=== PATIENT | female | born 1990 | race Caucasian/White ===

== ENCOUNTER 2018-07-24 17:48 | Inpatient (IN) | payer MEDICAID ==
[~2018-07-24] VITALS: Ht 154.9 cm; Wt 92.7 kg
[2018-07-24] MEDS ORDERED: LACTATED RINGER'S 1,000 ML IV SCH (17:49)
[2018-07-24] MEDS ORDERED: METHYLERGONOVINE 0.2 MG INJ IM PRN (18:00)
[2018-07-24] MEDS ORDERED: OXYTOCIN 30 UNITS/LR 500 ML IV PRN (18:00)
[2018-07-24] MEDS ORDERED: OXYTOCIN 30 UNITS/LR 500 ML IV SCH (18:00)
[2018-07-24] MEDS ORDERED: CEFAZOLIN 2 GM/50 ML (PMX) 50 ML IVPB SCH (18:00)
[2018-07-24] MEDS ORDERED: CARBOPROST 250 MCG INJ IM PRN (18:00)
[2018-07-24] MEDS ORDERED: MISOPROSTOL 200 MCG TAB PR PRN (18:00)
[2018-07-24] MEDS ORDERED: ONDANSETRON 4 MG INJ IV STA ×2 (18:02→18:07)
[2018-07-24 18:05] VITALS: Ht 154.9 cm; Wt 92.7 kg
[2018-07-24] MEDS ORDERED: PNV11TAB PO (18:07)
[2018-07-24] MEDS ORDERED: FAMOTIDINE 20 MG INJ IV ONE ×2 (18:30)
[2018-07-24] MEDS ORDERED: METOCLOPRAMIDE 10 MG INJ IV ONE ×2 (18:30)
[2018-07-24] MEDS ORDERED: CEFAZOLIN 2 GM/50 ML (PMX) 50 ML IVPB ONE (18:34)
--- NOTE | 2018-07-24 19:23 | HP ---
Date/Time of Note Date/Time of Note DATE: 07/24/18 TIME: 19:20 OB - History Hx of Present Free Text/Dictation 37 years old 1 with breech presentation at 39 weeks and 3 days admitted for primary delivery. She states good movement. She denies nausea, vomiting, shortness of breath, chest pain, headache, visual changes, vaginal bleeding or LOF. Chief Complaint: Scheduled for primary delivery for breech presentation Estimated Due Date: July 28, 2018 : 1 Care: Good Care Ultrasounds: Normal mid trimester US Obstetrical Complications: None Medical Complications: None Past Family/Social History * Past Medical, Surgical, Family and Obstetric Histories reviewed from chart. Blood Type: O+ Rubella: immune RPR/VDRL: Negative GBS Status: Negative HBsAG: Negative OB Admission Exam Vital Signs Vital Signs Blood pressure 126/71, pulse rate 79/minutes, respiratory rate 16/minutes, temperature 98.6 Physical Exam HEENT: WNL Heart: Rhythm Normal Lungs: Clear Abdomen: WNL Extremities: Normal Membranes: Intact Heart Rate: 130's Accelerations: Accelerations Present Decelerations: No Decelerations Varibility: Moderate Contractions on Admission: None Last 72 hours Lab Results CBC & BMP 07/24/18 18:00 OB Assessment/Plan Other plan: 27 years old 1 with single intrauterine at 39 weeks and 3 days with breech presentation -FHR: No sign of metabolic acidosis- Category I -Continuous EFM, toco -CBC, blood type and screen -O+/Rubella: Immune -GBS: Negative The risk of delivery including but not limited to bleeding, infection, injury to other organs (bowel, bladder, ureter, vessels, nerves), injury to fetus, blood transfusion, blood transfusion related infection, risk of anesthesia, adhesion, needs for future , removal of uterus or any other indicated surgery was discussed with the patient and her family. She expressed understanding. All of her questions were answered. She signed the informed consent. PHYSICIAN'S VERIFICATION OF INFORMED CONSENT The patient was counseled regarding the procedure, its indications, risks, potential complications and alternatives and any questions were answered. Consent was obtained. PLANNED PROCEDURE/TREATMENT: delivery with possible using vacuum/forceps and any other indicated surgery PHYSICIAN'S VERIFICATION OF INFORMED CONSENT FOR BLOOD TRANSFUSION: There is a reasonable possibility that blood transfusion will be necessary as a result of the patient's procedure. I have discussed the following with the patient/patient's legal retail account representative: An explanation of the benefits and risks of the transfusion of blood or blood products and the possible alternatives. All questions have been answered to the patient's satisfaction. INFORMED CONSENT:The patient has been informed of: The nature of the proposed care, treatment, services, medications, interventions or procedures. Potential benefits, risks or side effects, including potential problems related to recuperation. The likelihood of achieving care treatment and service goals. Reasonable alternatives to the proposed care, treatment and service. The relevant risks, benefits and side effects related to alternatives, including the possible results of not receiving care, treatment and services. When indicated, any limitations on the confidentiality of information learned from or about the patient. If appropriate, the risks, benefits and alternatives of the drugs to be used for sedation/analgesia including moderate sedation. If appropriate, patient has been provided information on the risks, benefits and alternatives to the transfusion of blood and/or blood products. If appropriate, patient has been provided information regarding the [place] Blood Act. JUAN CASTANEDA July 24, 2018 19:23
--- NOTE | 2018-07-24 20:54 | PREAC ---
Date/Time of Note Date/Time of Note DATE: 07/24/18 TIME: 20:52 Anesthesia Eval and Record Evaluation Time Pre-Procedure Interview DATE: 07/24/18 TIME: 20:52 Age 27 Sex female NPO: 8 hrs Preoperative diagnosis term labor , breech presentation Planned procedure primary Csection Past Medical History Past Medical History: None : Other (breech) Surgery & Anesthesia Issues No known issue Meds Anticoagulation: No Beta Alysha within 24 hr: No Reason Beta Alysha not given: Pt. not on B-Alysha Reported Medications [id number] ( 19) 1 Each Tablet, 1 TAB PO DAILY, TAB 07/24/18 Current Medications Lactated Ringer's 1,000 ml @ 125 mls/hr Q8H IV Last administered on 07/24/18at 18:41; Admin Dose 125 MLS/HR; Start 07/24/18 at 17:49 Cefazolin Sodium/ Dextrose 50 ml @ 100 mls/hr ONCE IVPB ; Start 07/24/18 at 18:00 Oxytocin/Lactated Ringer's 500 ml @ 125 mls/hr POST IV ; Start 07/24/18 at 18:00 Oxytocin/Lactated Ringer's 500 ml @ 0 mls/hr ONCE PRN IV .VAGINAL BLEEDING; St art 07/24/18 at 18:00 Methylergonovine Maleate (Methergine) 0.2 mg ONCE PRN IM .VAGINAL BLEEDING; St art 07/24/18 at 18:00 Carboprost Tromethamine (Hemabate) 250 mcg ONCE PRN IM .VAGINAL BLEEDING; Start 07/24/18 at 18:00 Misoprostol (Cytotec) 1,000 mcg ONCE PRN VT .VAGINAL BLEEDING; Start 07/24/18 at 18:00 Meds reviewed: Yes Allergies Coded Allergies: No Known Allergy (Unverified , 07/24/18) Allergies Reviewed: Yes Labs/Studies Labs Reviewed: Reviewed by anesthesiologist Result Diagram: 07/24/18 1800 Laboratory Tests 07/24/18 18:00 Blood Bank Test 07/24/18 18:00 Antibody Screen NEGATIVE Blood Type O POSITIVE Rh Immune Globulin Candidate NO test: Positive Pre-procedure Exam Airway: Adequate mouth opening, Adequate thyromental dist Mallampati: Mallampati III Teeth: Normal Lung: Normal Heart: Normal ASA Physical Status ASA physical status: 2 Emergency: None Planned Anesthetic Neuraxial: Spinal Planned Pain Management Sub-arachniod narcotics, Parenteral pain med, Other neuraxial med Pre-operative Attestations Prior to commencing anesthesia and surgery, the patient was re-evaluated, there was verification of: *The patient's identity *The results of appropriate recent lab work and preoperative vital signs *The above evaluation not changing prior to induction *Anesthetic plan, risk benefits, alternative and complications discussed with patient/family; questions answered; patient/family understands, accepts and wishes to proceed. RAFA ADLER MD July 24, 2018 20:53
[2018-07-24] MEDS ORDERED: morphine SULFATE/PF (10 MG/10 ML) INJ ONE (20:57)
[2018-07-24] MEDS ORDERED: OXYTOCIN 10 UNIT INJ ONE ×3 (20:57→22:40)
[2018-07-24] MEDS ORDERED: OXYTOCIN 30 UNITS/LR 500 ML IV ONE (20:57)
[2018-07-24] MEDS ORDERED: MIDAZOLAM 1 MG/ML 2 ML INJ IV PRN (21:00)
[2018-07-24] MEDS ORDERED: HYDROmorphONE 1 MG/5 ML IV SYRINGE IV PRN ×3 (21:00)
[2018-07-24] MEDS ORDERED: ONDANSETRON 4 MG INJ IV PRN ×2 (21:00)
[2018-07-24] MEDS ORDERED: HYDROmorphONE 0.5 MG/0.5 ML SYG IV PRN ×2 (21:00)
[2018-07-24] MEDS ORDERED: LORAZEPAM 2 MG INJ IV PRN (21:00)
[2018-07-24] MEDS ORDERED: KETOROLAC 30 MG INJ IV PRN ×2 (21:00)
[2018-07-24] MEDS ORDERED: FENTAnyl 50 MCG/ML VIAL IV PRN ×2 (21:00)
[2018-07-24] MEDS ORDERED: NALOXONE (0.4 MG/ML) INJ IV PRN ×2 (21:00)
[2018-07-24] MEDS ORDERED: DIPHENHYDRAMINE 50 MG INJ IV PRN ×2 (21:00)
[2018-07-24] MEDS ORDERED: ZOLPIDEM 5 MG TAB PO PRN (21:00)
--- NOTE | 2018-07-25 00:11 | OPR ---
Operative Report Planned Procedure Procedure date July 25, 2018 Procedure(s) Primary low transverse delivery Performed by see signature line Flitch Hanger: BRIAN SAHNI MD Anesthesiologist: RAFA ADLER MD Pre-procedure diagnosis 37 years old 1 with breech presentation at 39 weeks and 3 days [id number] Anesthesia Type: Rtdel3h spinal Post-Procedure Post-procedure diagnosis 37 years old 1 with lindsay breech presentation at 39 weeks and 3 days Findings 1. Normal uterus, fallopian tubes and ovaries 2. Viable male in lindsay breech presentation. 9 at one minute and 9 in 5 minutes. Weight: 4460 gram. Time of delivery: 22:31 3. Placenta with three vessel cord 4. Amniotic fluid -thin meconium Estimated Blood Loss: 500 - 600 mls Specimen(s) none Grafts/Implant(s) none Complication(s) none Pt Condition post procedure: stable Disposition: PACU Procedure Description INDICATION AND HISTORY: A 37-year-old 1 with lindsay breech presentation at 39 weeks and 3 days. The risk of delivery including but not limited to bleeding, infection, injury to other organs (bowel, bladder, ureter, vessels, nerves), injury to fetus, blood transfusion, blood transfusion related infection, risk of anesthesia, adhesion, needs for future , removal of uterus or any other indicated surgery was discussed with the patient and her family. She expressed understanding. All of her questions were answered. She signed the informed consent. DESCRIPTION OF OPERATION: The patient was taken to the operating room, where she was identified and the procedure was verified. The patient received two gram of Ancef 30 minutes prior to surgery. Spinal anesthesia was placed by anesthesiologist. The patient placed in the dorsal supine position with a left tilt. The heart rate was 128 bpm. The patient was then prepped and draped in the normal sterile [facility] ion. A Pfannenstiel skin incision was made and carried down to the fascia with knife. The fascia was incised in the midline and the fascial incision was carried laterally with knife. The superior portion of the fascial incision was then grasped with Zaki clamps and tented up and dissected off the underlying rectus muscle with sharp dissection. The lower portion of the fascial incision was then made in a similar fashion. The rectus muscle was and the peritoneum was entered. The peritoneal incision was then stretched and a bladder blade was inserted. Then, an incision was made in the lower uterine segment in a transverse fashion with a knife and extended bluntly. The was in lindsay breech presentation,delivered in double footling breech atraumatically with the above findings. The umbilical cord was clamped and cut. The neonatology resuscitation team was present and the baby was handed to them. A cord blood sample was obtained for further evaluation. The placenta and membrane, which appeared normal were Removed. The uterus was exteriorized and cleared of all clot and debris. The uterus was then closed in a two layer fashion with 0-Monocryl. At the time of closure, hemostasis was noted. The gutters were irrigated. The peritoneum was reapproximated with 3-0 Vicryl. The muscle was reapproximated with 3-0 Vicryl. The fascia was approximated with 0-Vicryl in a running fashion. The subcutaneous tissue was re approximated with 3-0 vicryl. The skin was closed with 4-0 Monocryl. All instruments, sponges and needle counts were correct x3. The patient tolerated the procedure well. She transferred to the recovery room in stable condition. JUAN CASTANEDA July 25, 2018 00:11
[2018-07-25] MEDS ORDERED: MAGNESIUM HYDROXIDE 30ML CUP PO PRN (00:30)
[2018-07-25 01:30] VITALS: BP 132/73; PULSE 100; RESP 18
[2018-07-25] MEDS ORDERED: OXYTOCIN 30 UNITS/LR 500 ML IV SCH (02:03)
[2018-07-25 02:30] VITALS: BP 130/76; PULSE 117; PULSE 127; RESP 18
[2018-07-25] MEDS ORDERED: METHYLERGONOVINE 0.2 MG INJ IM PRN (02:30)
[2018-07-25] MEDS ORDERED: LANOLIN HPA 1 PKT TOP PRN (02:30)
[2018-07-25] MEDS ORDERED: CARBOPROST 250 MCG INJ IM PRN (02:30)
[2018-07-25] MEDS ORDERED: MISOPROSTOL 200 MCG TAB PR PRN (02:30)
[2018-07-25] MEDS ORDERED: METHYLERGONOVINE 0.2 MG TAB PO PRN (02:30)
[2018-07-25] MEDS ORDERED: OXYTOCIN 30 UNITS/LR 500 ML IV PRN (02:30)
[2018-07-25 04:15] VITALS: BP 126/64; PULSE 133; RESP 18
[2018-07-25 08:30] VITALS: BP 139/68; PULSE 108; RESP 20
[2018-07-25] MEDS: SENNA/DOCUSATE NA (8.6MG/50MG) TAB PO SCH ×2 (08:37→22:13)
[2018-07-25] MEDS: DEXTROSE 5%-LR 1,000 ML IV SCH ×2 (10:43→15:43)
[2018-07-25 12:25] VITALS: BP 121/71; PULSE 101; RESP 20
[2018-07-25 16:53] VITALS: BP 122/70; PULSE 98; RESP 18
[2018-07-25] MEDS: IBUPROFEN 800 MG TAB PO SCH (22:13)
--- NOTE | 2018-07-26 02:44 | PN ---
Date/Time of Note Date/Time of Note DATE: 07/26/18 TIME: 02:39 OB Subjective Subjective Subjective POD#1 Patient is doing well. She denies nausea, vomiting, shortness of breath, chest pain, headache. She has been ambulating without difficulty, tolerating regular diet. Pain is well controlled on current medications OB Objective Objective Objective VS - Last 72 Hours, by Label Date Temp Pulse Resp B/P (MAP) Pulse Ox O2 O2 Flow FiO2 Time Delivery Rate 07/25/18 Room Air 16:57 07/25/18 98.2 98 18 122/70 Room Air 16:53 (87) 07/25/18 Room Air 16:26 07/25/18 98.8 101 20 121/71 97 Room Air 12:25 (88) 07/25/18 99.2 108 20 139/68 98 08:30 (91) 07/25/18 98.0 133 18 126/64 95 Room Air 04:15 (84) 07/25/18 98.8 127 18 130/76 95 Room Air 02:30 (94) 07/25/18 98.6 100 18 132/73 95 Room Air 01:30 (92) General: AAO X 3, comfortable, NAD, appropriate mood and affect. Heart: RRR +S1, +S2, no murmurs. Lungs: Clear to auscultation (B/L), no rales, rhonchi or wheezing. ABD: +BS. Soft, non-tender. Uterus 2 cm below umbilicus Incision: Clear, dry, intact. No erythema, drainage or induration. Flank: No CVA tenderness (B/L) LE: Mild edema. No clubbing, cyanosis, thigh or calf tenderness (B/L). Homans 'sign is negative OB Assessment/Plan Other plan: 37 years old 1 para 1-0-0-1 s/p primary delivery at 39 weeks and 3 days for breech presentation. POD#1 - AF, VSS - Baby is doing well, at bed side. She is bonding well - Contraception methods with R/B/A/FR discussed - Continue care Late entry note. Patient seen on 07/25/2018 JUAN CASTANEDA July 26, 2018 02:44
--- NOTE | 2018-07-26 02:46 | PN ---
Date/Time of Note Date/Time of Note DATE: 07/26/18 TIME: 02:44 OB Subjective Subjective Subjective POD#2 Patient is doing well. She denies nausea, vomiting, shortness of breath, chest pain, headache. She has been ambulating without difficulty, tolerating regular diet. Pain is well controlled on current medications OB Objective Objective Objective Vital Signs Date Temp Pulse Resp B/P (MAP) Pulse Ox O2 O2 Flow FiO2 Time Delivery Rate 07/25/18 Room Air 16:57 07/25/18 98.2 98 18 122/70 16:53 (87) 07/25/18 97 12:25 General: AAO X 3, comfortable, NAD, appropriate mood and affect. ABD: +BS. Soft, non-tender. Uterus 2 cm below umbilicus Incision: Clear, dry, intact. No erythema, drainage or induration. Flank: No CVA tenderness (B/L) LE: Mild edema. No clubbing, cyanosis, thigh or calf tenderness (B/L). Homans 'sign is negative OB Assessment/Plan Other plan: 37 years old 1 para 1-0-0-1 s/p primary delivery at 39 weeks and 3 days for breech presentation. POD#2 - AF, VSS - Baby is doing well, at bed side. She is bonding well - Contraception methods with R/B/A/FR discussed - Discharge home tomorrow - Rx and instruction given - Follow up in one and 6 weeks JUAN CASTANEDA July 26, 2018 02:46
[2018-07-26 03:44] VITALS: BP 116/77; PULSE 89; RESP 17
[2018-07-26] MEDS: IBUPROFEN 800 MG TAB PO SCH ×3 (06:02→21:19)
[2018-07-26 08:30] VITALS: BP 118/63; PULSE 91; RESP 18
[2018-07-26] MEDS: SENNA/DOCUSATE NA (8.6MG/50MG) TAB PO SCH ×2 (10:03→21:19)
[2018-07-26] MEDS ORDERED: HYDROCODONE/APAP (5/325) TAB PO PRN (11:00)
[2018-07-26] MEDS ORDERED: DIPHTH/TET/ACEL PERTUSS (ADULT) 0.5 ML VIAL IM* ONE (11:00)
[2018-07-26] MEDS: HYDROCODONE/APAP (5/325) TAB PO SCH ×2 (13:26→21:19)
[2018-07-26 17:18] VITALS: BP 130/87; PULSE 91; RESP 18
[2018-07-26 19:45] VITALS: BP 120/78; PULSE 90; RESP 18
[2018-07-26] MEDS ORDERED: DIPHENHYDRAMINE 50 MG CAP PO ONE (23:30)
[2018-07-26] MEDS ORDERED: DIPHENHYDRAMINE 25 MG CAP PO PRN (23:30)
[2018-07-27 03:38] VITALS: BP 126/72; PULSE 78; RESP 17
[2018-07-27] MEDS: HYDROCODONE/APAP (5/325) TAB PO SCH ×2 (05:44→13:39)
[2018-07-27] MEDS: IBUPROFEN 800 MG TAB PO SCH ×2 (05:44→13:39)
[2018-07-27 08:30] VITALS: BP 136/71; PULSE 81; RESP 18
[2018-07-27] MEDS: SENNA/DOCUSATE NA (8.6MG/50MG) TAB PO SCH (10:10)
--- NOTE | 2018-07-27 11:15 | PD.PPDC ---
ROTARY ADJUSTER Discharge Instruction Diagnosis [id number] Final Diagnosis: Aybzz3m s/p primary C/S for breech presentation Condition [id number] Patient Condition: Ylbwl1h Stable Diet Emuvx1Nv Diet: Yctcf4l Resume Regular Diet Activity/Restrictions Gotwj1Gp Restrictions: Sujmf0x No Exercising No Lifting Minimize Stair-climbing No Sexual Activity Nothing in the Vagina No [place] No Tampons, douche Wound/Drain Care Instructions [id number] Wound/Drain Care Instructions: Lbssi1a Wash with soap and water Keep clean and dry Follow-up Follow-up with Physician: 2 Return to clinic for Fpffq7Yj SIGNAL CONSTRUCTOR Instructions: Lufmo8r Fever greater than 101 Chills Worsening abdominal pain Excessive Vaginal Bleeding More than 2 pads per hour Unable to tolerate diet [id number] OB Instructions: Caysc7n Breast Tenderness Depression Blurried Vision Headache Uggim1Pw Surgical Instructions: Nqntm0t Incisional Drainage Incisional Redness JAMES SHEN MD July 27, 2018 11:15
--- NOTE | 2018-07-27 11:17 | DS ---
Date/Time of Note Date/Time of Note DATE: 07/27/18 TIME: 11:16 Obstetrical Discharge Record Final Diagnosis Final Diagnosis: Term delivered Section Section: Primary Complications Augmentation: No Induction: No Rupture of Membranes: No Condition on Discharge Physical Assessment Last Vitals: VSS afebrile Voiding: Yes Bowel Movement: No Breast: Soft, non-tender Fundus: Firm Abdomen and Incision: soft wound dry Calf Tenderness: No Patient Condition: Stable JAMES SHEN MD July 27, 2018 11:17
[2018-07-27 15:55] VITALS: BP 127/94; PULSE 86; RESP 18
[2018-07-28] MEDS ORDERED: MEASLES,MUMPS,RUBELLA VACCINE INJ SC* ONE (09:00)
[2018-07-28] MEDS ORDERED: DIPHTH/TET/ACEL PERTUSS (ADULT) 0.5 ML VIAL IM* ONE (09:00)
--- NOTE | 2018-07-28 19:05 | DELSUM ---
Delivery Summary A-C Datetime Report Generated by CPN: 07/28/2018 19:04 DELIVERY PERSONNEL Turkish Line Attendant: Morgan, Cara MATERNAL INFORMATION Delivery Anesthesia: Spinal Medications in Delivery: see anesthesia records Delivery QBL (ml): 600 Placenta Cultured: No Maternal Complications: None Other Maternal Complications: BREECH LABOR SUMMARY EDC: 07/28/2018 00:00 No. Babies in Womb: 1 Attempted: No Labor Anesthesia: None LABOR INFORMATION Reason for Induction: Not Applicable Oxytocin: N/A Group B Beta Strep: Negative Antibiotics # of Doses: X1 2G ANCEF Antibiotics Time of Last Dose: 07/24/2018 22:10 Steroids Given: None Reason Steroids Not Administered: Not Applicable MEMBRANES Membranes Rupture Method: Artificial Rupture of Membranes: 07/24/2018 22:28 Length of Rupture (hr): 0.05 Amniotic Fluid Color: Light Meconium Amniotic Fluid Amount: Moderate Amniotic Fluid Odor: None STAGES OF LABOR Stage 3 hr: 0 Stage 3 min: 2 CSECTION DELIVERY Primary Indication: Breech Presentation Secondary Indication: N/A CSection Urgency: Non Elective CSection Incidence: Primary Labor: No Labor Elective: Nonelective CSection Incision: Lower Uterine Transverse BABY A INFORMATION Infant Delivery Date/Time: 07/24/2018 22:31 Method of Delivery: Born in Route : No : N/A Forceps: N/A Vacuum Extraction: N/A Shoulder Dystocia : N/A SHOULDER DYSTOCIA BABY A Infant Delivery Date/Time: 07/24/2018 22:31 PRESENTATION/POSITION BABY A Presentation: Breech Cephalic Presentation: N/A Breech Presentation: Abdullahi PLACENTA INFORMATION BABY A Placenta Delivery Time : 07/24/2018 22:33 Placenta Method of Delivery: Expressed Placenta Status: Delivered SCORES BABY A Heart Rate 1 min: >100 bpm Resp Effort 1 min: Good Cry Reflex Irritability 1 min: Cough/Sneeze/Pulls Away Muscle Tone 1 min: Active Motion Color 1 min: Body [place], Extremit Blue Resuscitation Effort 1 min: Tactile Stimulation SCORE 1 MIN: 9 Heart Rate 5 min: >100 bpm Resp Effort 5 min: Good Cry Reflex Irritability 5 min: Cough/Sneeze/Pulls Away Muscle Tone 5 min: Active Motion Color 5 min: Body [place], Extremit Blue Resuscitation Effort 5 min: Tactile Stimulation SCORE 5 MIN: 9 INFANT INFORMATION BABY A Gestational Age at Delivery: 39.3 Gestational Status: Full Term- 39- 40.6 Weeks Infant Outcome : Liveborn Infant Condition : Stable Infant Sex: Male IDENTIFICATION/MEDS BABY A ID Band Number: [id number] ID Band Location: Right Leg; Left Arm Sensor Applied: Yes Sensor Number: [id number] Sensor Location : Cord Clamp Vitamin K Given : Not Given Erythromycin Given: Not Given WEIGHT/LENGTH BABY A Infant Birthweight (gm): 4260 Infant Weight (lb): 9 Weight (oz): 6 Infant Length (in): 21.25 Length (cm): 53.98 CORD INFORMATION BABY A No. Cord Vessels: 3 Nuchal Cord : N/A Cord Blood Taken: Yes Infant Suction: Mouth; Nose ASSESSMENT BABY A Infant Complications: None Physical Findings at Delivery: Within Normal Limits Infant Respirations: Appears Normal Electrical Engineering Technologist/ALS Called : No Care By: PATINO Transferred To: Remains with Mother
== END 2018-07-27 19:04 | disposition home or self-care (01) | DRG 788 ==
LOC: L-D 17:48 → PP1 07-25 01:26
PROVIDERS: ADMIT Obstetrics & Gynecology; ATTEND Obstetrics & Gynecology
PROC: 10D00Z1 Extraction of Products of Conception, Low, Open Approach (ICD-10-PCS; principal; 2018-07-25)
DX: O32.1XX0 Maternal care for breech presentation, not applicable or unspecified (principal); Z3A.39 39 weeks gestation of pregnancy; Z37.0 Single live birth
CPT/HCPCS: 76815; 85025; 85610; 85730; 86592; 86850; 86900; 86901; 87340; 99464; J0690; J1885; J2274; J2405; J2590; J2765; J7120; J7121